=== PATIENT | female | born 1970 | race Caucasian/White ===

== ENCOUNTER 2016-08-04 17:06 | Emergency (ER) | payer MEDICAID ==
[~2016-08-04] VITALS: Ht 162.6 cm; Wt 65.8 kg
[~2016-08-04 17:06] MED LIST: ALPR0.5T PO
[2016-08-04 17:55] LABS: BASOPHILS # (AUTO) 0.1 /CMM (0.0-0.2); BASOPHILS % (AUTO) 0.8 % (0.0-2.0); DIFF TOTAL % 100 %; EOSINOPHILS # (AUTO) 0.1 /CMM (0.0-0.7); EOSINOPHILS % (AUTO) 1.4 % (0.0-6.0); HEMATOCRIT 38 % (33-45); HEMOGLOBIN 11.9 g/dL (11.5-14.8); LYMPHOCYTES # (AUTO) 3.2 /CMM (0.8-4.8); LYMPHOCYTES % (AUTO) 37.7 % (20.0-44.0); MEAN CORPUSCULAR HEMOGLOBIN 27 PG (26.0-33.0); MEAN CORPUSCULAR HGB CONC 32 g/dl (31.0-36.0); MEAN CORPUSCULAR VOLUME 83 fL (82-100); MONOCYTES # (AUTO) 0.4 /CMM (0.1-1.30); MONOCYTES % (AUTO) 4.6 % (2.0-12.0); NEUTROPHILS # (AUTO) 4.7 /CMM (1.8-8.9); NEUTROPHILS % (AUTO) 55.5 % (43.0-81.0); PLATELET COUNT (AUTO) 334 /CMM (150-450); RED BLOOD CELL COUNT(AUTO) 4.51 MIL/uL (4.0-5.2); WHITE BLOOD COUNT (AUTO) 8.5 K/uL (4.3-11.0)
[2016-08-04] MEDS ORDERED: IV NS 0.9% 1,000 ML BAG IV ONE (18:00)
[2016-08-04] MEDS ORDERED: LORAZEPAM INJ 2 MG/ML VIAL IV ONE ×2 (18:00→19:00)
[2016-08-04 18:02] LABS: CREATININE 0.5 mg/dL (0.6-1.3); POTASSIUM 3.3 mmol/L (3.5-5.1)
[2016-08-04 18:09] LABS: ALBUMIN 3.8 g/dL (3.4-5.0); BILIRUBIN,DIRECT 0.1 mg/dL (0.0-0.2); BILIRUBIN,TOTAL 0.7 mg/dL (0.2-1.0); INDIRECT BILIRUBIN 0.6 mg/dL (0.0-1.1); TOTAL PROTEIN, SERUM 7.5 g/dL (6.4-8.2)
[2016-08-04 18:15] LABS: INR 0.99 (0.87-1.13); PROTHROMBIN TIME 10.7 SECS (9.5-12.7)
[2016-08-04] MEDS ORDERED: IV SET PRIMARY 1 EA INFUS.SET MC ONE (19:17)
[2016-08-04] MEDS ORDERED: IV NS 0.9% 1,000 ML ONE (19:17)
[2016-08-04] MEDS ORDERED: LORAZEPAM INJ 2 MG/ML VIAL ONE (19:17)
[2016-08-04] MEDS ORDERED: POTASSIUM CHLORIDE 20 MEQ TAB.PRT.SR PO ONE ×2 (21:29→21:30)
[2016-08-04 21:48] VITALS: BP 132/84
== END 2016-08-04 21:48 | disposition home or self-care (01) ==
LOC: ER 17:10
DX: F10.129 Alcohol abuse with intoxication, unspecified (principal); J45.909 Unspecified asthma, uncomplicated; F41.9 Anxiety disorder, unspecified; F17.200 Nicotine dependence, unspecified, uncomplicated
CPT/HCPCS: 36415; 80048; 80076; 83690; 85025; 85730; 86850; 93005; 96361; 96374; 99285; A4606; J2060; J7030; Z7610; 86901

== ENCOUNTER 2016-10-01 14:58 | Emergency (ER) | payer MEDICAID ==
[~2016-10-01] VITALS: Ht 162.6 cm; Wt 72.6 kg
[2016-10-01 15:33] LABS: BASOPHILS # (AUTO) 0.1 /CMM (0.0-0.2); BASOPHILS % (AUTO) 0.7 % (0.0-2.0); DIFF TOTAL % 100 %; EOSINOPHILS # (AUTO) 0.1 /CMM (0.0-0.7); EOSINOPHILS % (AUTO) 1.2 % (0.0-6.0); HEMATOCRIT 38 % (33-45); HEMOGLOBIN 12.1 g/dL (11.5-14.8); LYMPHOCYTES # (AUTO) 2.8 /CMM (0.8-4.8); LYMPHOCYTES % (AUTO) 30.7 % (20.0-44.0); MEAN CORPUSCULAR HEMOGLOBIN 28 PG (26.0-33.0); MEAN CORPUSCULAR HGB CONC 32 g/dl (31.0-36.0); MEAN CORPUSCULAR VOLUME 87 fL (82-100); MONOCYTES # (AUTO) 0.3 /CMM (0.1-1.30); MONOCYTES % (AUTO) 3.6 % (2.0-12.0); NEUTROPHILS # (AUTO) 5.8 /CMM (1.8-8.9); NEUTROPHILS % (AUTO) 63.8 % (43.0-81.0); PLATELET COUNT (AUTO) 309 /CMM (150-450); RED BLOOD CELL COUNT(AUTO) 4.36 MIL/uL (4.0-5.2); WHITE BLOOD COUNT (AUTO) 9.1 K/uL (4.3-11.0)
[2016-10-01 15:43] LABS: CALCIUM, SERUM 8.3 mg/dL (8.5-10.1); CREATININE 0.6 mg/dL (0.6-1.3); POTASSIUM 3.9 mmol/L (3.5-5.1)
[2016-10-01 17:02] VITALS: BP 120/64
== END 2016-10-01 16:15 | disposition home or self-care (01) ==
LOC: ER 15:00
DX: N89.8 Other specified noninflammatory disorders of vagina (principal); J45.909 Unspecified asthma, uncomplicated; F17.200 Nicotine dependence, unspecified, uncomplicated; F41.9 Anxiety disorder, unspecified
CPT/HCPCS: 36415; 80048; 84703; 85025; 87070; 87210; 87491; 87591; 99284; A4606; G0480; Z7610

== ENCOUNTER 2018-11-18 12:55 | Emergency (ER) | payer MEDICAID, OTHER ==
[~2018-11-18] VITALS: Ht 165.1 cm; Wt 55.3 kg
[2018-11-18] MEDS ORDERED: HALOPERIDOL LACTATE INJ 5 MG/ML VIAL ONE (13:08)
[2018-11-18] MEDS ORDERED: LORAZEPAM INJ 2 MG/ML VIAL ONE (13:08)
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
[2018-11-18] MEDS ORDERED: IV NS 0.9% 1,000 ML BAG IV ONE ×2 (13:30→15:30)
[2018-11-18] MEDS ORDERED: LORAZEPAM INJ 2 MG/ML VIAL IVP ONE (13:30)
[2018-11-18] MEDS ORDERED: HALOPERIDOL LACTATE INJ 5 MG/ML VIAL IM ONE (13:30)
[2018-11-18] MEDS ORDERED: LORAZEPAM INJ 2 MG/ML VIAL IV ONE (13:30)
--- NOTE | 2018-11-18 13:40 | NUR ---
PT SATTING AT 86% ON RA. PLACED ON 3L VIA NC. PA AWARE
--- NOTE | 2018-11-18 14:10 | NUR ---
RESTRAINTS DC'D. PT ASLEEP AND VSS. WILL CONT TO MONITOR.
--- NOTE | 2018-11-18 15:15 | NUR ---
PT BP CONTINUES TO BE LOW. PA NOTIFIED
--- NOTE | 2018-11-18 16:00 | NUR ---
PT AWAKE AND OUT OF BED, PULLED OUT IV. REORIENTED TO BED AND PLACED BACK ON 2-PT RESTRAINTS. CMS INTACT
--- NOTE | 2018-11-18 16:27 | NUR ---
PT SNORING IN BED. BP STILL LOW. PA AWARE, WILL CONT TO MONITOR.
--- NOTE | 2018-11-18 17:27 | NUR ---
ASSISTED PT TO BEDPAN
--- NOTE | 2018-11-18 17:51 | NUR ---
Patient is resting comfortably in bed with eyes closed. Easily aroused. CMS INTACT. VSS
--- NOTE | 2018-11-18 19:35 | NUR ---
Patient is asleep in bed. Easily aroused. VSS
--- NOTE | 2018-11-18 20:13 | NUR ---
PER DR CASTELAN, DC'D RESTRAINTS AND GAVE PT SANDWICH AND JUICE. PT IS MUCH MORE COHERENT.
--- NOTE | 2018-11-18 20:55 | NUR ---
Patient discharged to home in stable condition. Written and verbal after care instructions given. Patient verbalizes understanding of instruction.
[2018-11-18 21:06] VITALS: BP 93/62
== END 2018-11-18 20:55 | disposition home or self-care (01) ==
LOC: ER 12:56
DX: F10.129 Alcohol abuse with intoxication, unspecified (principal); R09.02 Hypoxemia; E86.0 Dehydration; R45.1 Restlessness and agitation; I10 Essential (primary) hypertension; F17.200 Nicotine dependence, unspecified, uncomplicated; Z79.899 Other long term (current) drug therapy; Y90.9 Presence of alcohol in blood, level not specified
CPT/HCPCS: 96361; 96372; 96374; 99283; J1630; J2060; J7030 ×2

== ENCOUNTER 2019-06-10 19:32 | Emergency (ER) | payer OTHER, MEDICAID ==
[~2019-06-10] VITALS: Ht 165.1 cm; Wt 55.3 kg
--- NOTE | 2019-06-10 19:35 | NUR ---
"[id number] FROM [address] +ETOH PER RA, BS 95" PT UNABLE TO ANSWER QUESTIONS APPROPRIETLY, VSS, NAD NOTED, PT TO BED 6, PT ON MONITOR, PENDING MD AARON
[2019-06-10] MEDS ORDERED: HALOPERIDOL LACTATE INJ 5 MG/ML VIAL ONE (19:58)
[2019-06-10] MEDS ORDERED: LORAZEPAM INJ 2 MG/ML VIAL ONE (19:58)
[2019-06-10] MEDS ORDERED: diphenhydrAMINE HCL 50 MG/ML VIAL ONE (19:58)
[2019-06-10] MEDS ORDERED: HALOPERIDOL LACTATE INJ 5 MG/ML VIAL IM ONE (20:00)
[2019-06-10] MEDS ORDERED: LORAZEPAM INJ 2 MG/ML VIAL IM ONE (20:00)
[2019-06-10] MEDS ORDERED: diphenhydrAMINE HCL 50 MG/ML VIAL IM ONE (20:00)
--- NOTE | 2019-06-10 22:09 | NUR ---
PT URINE COLLECTED AND SENT TO LAB
[2019-06-10 22:21] LABS: BASOPHILS # (AUTO) 0.1 /CMM (0.0-0.2); BASOPHILS % (AUTO) 1.9 % (0.0-2.0); EOSINOPHILS % (AUTO) 3.2 % (0.0-6.0); HEMATOCRIT 43 % (33-45); HEMOGLOBIN 14.6 g/dL (11.5-14.8); LYMPHOCYTES # (AUTO) 2.4 /CMM (0.8-4.8); LYMPHOCYTES % (AUTO) 43.5 % (20.0-44.0); MEAN CORPUSCULAR HGB CONC 34 g/dl (31.0-36.0); MEAN CORPUSCULAR VOLUME 92 fL (82-100); MONOCYTES # (AUTO) 0.2 /CMM (0.1-1.30); NEUTROPHILS # (AUTO) 2.6 /CMM (1.8-8.9); NEUTROPHILS % (AUTO) 47.4 % (43.0-81.0); PLATELET COUNT (AUTO) 274 /CMM (150-450); RED BLOOD CELL COUNT(AUTO) 4.65 MIL/uL (4.0-5.2); WHITE BLOOD COUNT (AUTO) 5.5 K/uL (4.3-11.0)
[2019-06-10 22:29] LABS: CALCIUM, SERUM 8.6 mg/dL (8.5-10.1); CREATININE 0.6 mg/dL (0.6-1.3); POTASSIUM 3.4 mmol/L (3.5-5.1)
[2019-06-10 22:32] LABS: APPEARANCE,URINE Clear (CLEAR); BILIRUBIN,URINE Negative (NEGATIVE); BLOOD, URINE Negative Ery/uL (NEGATIVE); COLOR,URINE Yellow (YELLOW); KETONES,URINE Negative (NEGATIVE); LEUKOCYTE ESTERASE ,URINE Negative (NEGATIVE); NITRITE, URINE Negative (NEGATIVE); PH,URINE 5.5 (5.0-8.0); PROTEIN,URINE Negative (NEGATIVE); UGLUCOSE Negative (NEGATIVE); UROBILINOGEN,URINE 0.2 EU/dL (0.2)
[2019-06-10 22:35] LABS: ALBUMIN 3.9 g/dL (3.4-5.0); BILIRUBIN,TOTAL 0.2 mg/dL (0.2-1.0); TOTAL PROTEIN, SERUM 7.4 g/dL (6.4-8.2)
--- NOTE | 2019-06-11 00:54 | NUR ---
PT IN BED, SITTER AT BEDISDE, PT AROUSABLE, -SOB, VS UPDATED.
--- NOTE | 2019-06-11 01:20 | NUR ---
Patient is resting comfortably in bed with eyes closed. Easily aroused. VSS
--- NOTE | 2019-06-11 03:44 | NUR ---
Patient is resting comfortably in bed with eyes closed. Easily aroused. VSS
--- NOTE | 2019-06-11 05:20 | NUR ---
PT AWAKE, AAOX4. AMBULATORY WITH STEADY GAIT. VITAL SIGNS STABLE. AWARE
[2019-06-11 05:45] VITALS: BP 129/85
--- NOTE | 2019-06-11 05:45 | NUR ---
Patient given written and verbal discharge instructions. Patient verbalizes understanding of instructions. Patient is ambulatory with steady gait. Refuses offer of jail placement. Patient given list of available shelters in surrounding area.Pt ambulatory with a steady gait
== END 2019-06-11 05:48 | disposition home or self-care (01) ==
LOC: ER 19:33
DX: F10.129 Alcohol abuse with intoxication, unspecified (principal); F17.200 Nicotine dependence, unspecified, uncomplicated; Z79.899 Other long term (current) drug therapy; Y90.9 Presence of alcohol in blood, level not specified
CPT/HCPCS: 36415; 80048; 80076; 80305; 80307; 80329; 81001; 84703; 85025; 96372 ×2; 99283; G0480; J1200; J1630; J2060; 81000-TC

== ENCOUNTER 2020-11-09 16:11 | Emergency (ER) | payer MEDICAID, OTHER ==
[~2020-11-09] VITALS: Ht 165.1 cm; Wt 56.7 kg
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
[2020-11-09 16:54] LABS: BASOPHILS # (AUTO) 0.1 /CMM (0.0-0.2); EOSINOPHILS % (AUTO) 1.9 % (0.0-6.0); HEMATOCRIT 44 % (33-45); HEMOGLOBIN 15.1 g/dL (11.5-14.8); LYMPHOCYTES # (AUTO) 3.9 /CMM (0.8-4.8); LYMPHOCYTES % (AUTO) 32.9 % (20.0-44.0); MEAN CORPUSCULAR HGB CONC 34 g/dl (31.0-36.0); MEAN CORPUSCULAR VOLUME 92 fL (82-100); MONOCYTES # (AUTO) 0.5 /CMM (0.1-1.30); MONOCYTES % (AUTO) 3.8 % (2.0-12.0); NEUTROPHILS # (AUTO) 7.2 /CMM (1.8-8.9); NEUTROPHILS % (AUTO) 60.4 % (43.0-81.0); PLATELET COUNT (AUTO) 104 /CMM (150-450); RED BLOOD CELL COUNT(AUTO) 4.79 MIL/uL (4.0-5.2); WHITE BLOOD COUNT (AUTO) 11.9 K/uL (4.3-11.0)
[2020-11-09 17:11] LABS: BILIRUBIN,URINE Negative (NEGATIVE); COLOR,URINE YELLOW (YELLOW); LEUKOCYTE ESTERASE ,URINE Negative (NEGATIVE); NITRITE, URINE Negative (NEGATIVE); PROTEIN,URINE Negative (NEGATIVE); UGLUCOSE Negative (NEGATIVE); UROBILINOGEN,URINE 0.2 EU/dL (0.2)
[2020-11-09 17:14] LABS: CALCIUM, SERUM 9.2 mg/dL (8.5-10.1); CARBON DIOXIDE 22 mmol/L (21-32); CHLORIDE 107 mmol/L (98-107); CREATININE 0.6 mg/dL (0.6-1.3); GLUCOSE 94 mg/dL (74-106); POTASSIUM 3.4 mmol/L (3.5-5.1); SODIUM SERUM 145 mmol/L (136-145); UREA NITROGEN, BLOOD 5 mg/dL (7-18)
[2020-11-09 17:15] LABS: ALANINE AMINOTRANSFERASE 35 U/L (12-78); ALCOHOL, BLOOD 310 mg/dL (0-0); ALKALINE PHOSPHATASE 65 U/L (46-116); ASPARTATE AMINOTRANSFERASE 21 U/L (15-37); BILIRUBIN,DIRECT 0.1 mg/dL (0.0-0.2); BILIRUBIN,TOTAL 0.5 mg/dL (0.2-1.0); TOTAL PROTEIN, SERUM 7.8 g/dL (6.4-8.2)
[2020-11-09 17:16] LABS: ACETAMINOPHEN < 2 ug/ml (10-30)
[2020-11-09] MEDS ORDERED: POTASSIUM CHLORIDE 20 MEQ TAB.PRT.SR PO ONE (18:30)
[2020-11-09] MEDS ORDERED: LORAZEPAM INJ 2 MG/ML VIAL ONE (19:08)
[2020-11-09 19:12] VITALS: BP 131/73
--- NOTE | 2020-11-09 19:21 | NUR ---
PT AAOX4, REMAINS ON MONITOR AND PULSE OX.
[2020-11-09] MEDS ORDERED: LORAZEPAM INJ 2 MG/ML VIAL IM ONE (19:30)
--- NOTE | 2020-11-09 19:47 | NUR ---
PT ON ASSISTANT TEACHING PROFESSOR AND PULSE OX. WILL CONTINUE TO MONITOR PT.
--- NOTE | 2020-11-09 20:00 | NUR ---
CHECKED ON PT, PT NOT IN ROOM, ER MD AWARE.
== END 2020-11-09 20:02 | disposition home or self-care (01) ==
LOC: ER 16:18
DX: F10.129 Alcohol abuse with intoxication, unspecified (principal); E87.6 Hypokalemia; R40.4 Transient alteration of awareness; F17.200 Nicotine dependence, unspecified, uncomplicated; Z79.899 Other long term (current) drug therapy; Y90.8 Blood alcohol level of 240 mg/100 ml or more
CPT/HCPCS: 36415; 70450; 80048; 80076; 80299; 80307; 80320; 81003; 82962; 85025; 93005; 96372; 99285; J2060; G0480

== ENCOUNTER 2020-11-23 14:28 | Emergency (ER) | payer OTHER ==
[~2020-11-23] VITALS: Ht 165.1 cm; Wt 56.7 kg
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
--- NOTE | 2020-11-23 14:39 | NUR ---
SEEN AND EXAMINED BY .
--- NOTE | 2020-11-23 14:48 | NUR ---
ER PHLEB AT BEDSIDE FOR BLOOD DRAW.
[2020-11-23 14:54] LABS: HEMOGLOBIN 14.7 g/dL (11.5-14.8); WHITE BLOOD COUNT (AUTO) 8.5 K/uL (4.3-11.0)
[2020-11-23 15:04] LABS: BASOPHILS # (AUTO) 0.1 /CMM (0.0-0.2); BASOPHILS % (AUTO) 1.5 % (0.0-2.0); EOSINOPHILS % (AUTO) 2.3 % (0.0-6.0); HEMATOCRIT 43 % (33-45); LYMPHOCYTES # (AUTO) 3.1 /CMM (0.8-4.8); LYMPHOCYTES % (AUTO) 36.4 % (20.0-44.0); MEAN CORPUSCULAR HGB CONC 34 g/dl (31.0-36.0); MEAN CORPUSCULAR VOLUME 93 fL (82-100); MONOCYTES # (AUTO) 0.5 /CMM (0.1-1.30); MONOCYTES % (AUTO) 6.2 % (2.0-12.0); NEUTROPHILS # (AUTO) 4.6 /CMM (1.8-8.9); NEUTROPHILS % (AUTO) 53.6 % (43.0-81.0); PLATELET COUNT (AUTO) 328 /CMM (150-450); RED BLOOD CELL COUNT(AUTO) 4.61 MIL/uL (4.0-5.2)
[2020-11-23 15:09] LABS: CARBON DIOXIDE 24 mmol/L (21-32); CHLORIDE 103 mmol/L (98-107); CREATININE 0.5 mg/dL (0.6-1.3); GLUCOSE 89 mg/dL (74-106); POTASSIUM 3.2 mmol/L (3.5-5.1); SODIUM SERUM 141 mmol/L (136-145); UREA NITROGEN, BLOOD 8 mg/dL (7-18)
[2020-11-23 15:14] LABS: ALANINE AMINOTRANSFERASE 40 U/L (12-78); ALBUMIN 3.8 g/dL (3.4-5.0); ALCOHOL, BLOOD 289 mg/dL (0-0); ALKALINE PHOSPHATASE 69 U/L (46-116); ASPARTATE AMINOTRANSFERASE 24 U/L (15-37); BILIRUBIN,DIRECT 0.1 mg/dL (0.0-0.2); BILIRUBIN,TOTAL 0.5 mg/dL (0.2-1.0); TOTAL PROTEIN, SERUM 7.5 g/dL (6.4-8.2)
[2020-11-23 15:16] LABS: ACETAMINOPHEN < 0 ug/ml (10-30)
[2020-11-23] MEDS ORDERED: POTASSIUM CHLORIDE 20 MEQ TAB.PRT.SR PO ONE (16:00)
[2020-11-23 17:03] VITALS: BP 124/78
--- NOTE | 2020-11-23 17:32 | NUR ---
PT STATED SHE IS NOT SUICIDAL AND JUST WANTS TO LEAVE.
--- NOTE | 2020-11-23 17:45 | NUR ---
Patient eloped from facility. ER MD notified.
== END 2020-11-23 17:46 | disposition left against medical advice (07) ==
LOC: ER 14:29
DX: F10.129 Alcohol abuse with intoxication, unspecified (principal); E87.6 Hypokalemia; F17.200 Nicotine dependence, unspecified, uncomplicated; Z79.899 Other long term (current) drug therapy; Y90.8 Blood alcohol level of 240 mg/100 ml or more
CPT/HCPCS: 36415; 80048-TC; 80076-TC; 85025-TC; G0480